=== PATIENT | female | born 1970 | race Hispanic/Latino ===

== ENCOUNTER 2019-05-15 19:28 | Emergency (ER) | payer BC ==
[2019-05-15] MEDS ORDERED: HYDROCODONE/APAP 7.5/325 MG TAB ONE (20:29)
[2019-05-15 20:43] LABS: Protime INR 1.09
[2019-05-15] MEDS ORDERED: NA CHLORIDE 0.9% 1,000 ML ONE (20:43)
[2019-05-15 20:44] LABS: Absolute Lymphocytes (CBC) 1.5 K/uL (0.7-4.9); Basophils % 0.9 % (0-1.3); Hematocrit 31.8 % (36.0-45.0); Lymphocytes % 29.3 % (15.3-44.8); MPV 6.8 fL (7.6-11.3)
[2019-05-15 21:03] LABS: ALT/SGPT 23 U/L (12-78); AST/SGOT 13 U/L (15-37); Albumin 3.3 g/dL (3.4-5.0); Alkaline Phosphatase 69 U/L (45-117); BUN Blood Urea Nitrogen 9 mg/dL (7-18); Bicarbonate 28 mmol/L (21-32); Bilirubin Direct < 0.1 mg/dL (0-0.2); Bilirubin Total 0.2 mg/dL (0.2-1.0); Glucose Level 89 mg/dL (74-106); Magnesium 2.1 mg/dL (1.8-2.4); NT PRO-BNP 115 pg/mL (<125); Potassium 3.9 mmol/L (3.5-5.1); Protein, Total 7.3 g/dL (6.4-8.2); Sodium Level 140 mmol/L (136-145); Troponin (Emerg Dept Use Only) < 0.02 ng/mL (0.0-0.045)
[2019-05-15 22:03] LABS: Urine Blood NEGATIVE (NEG); Urine Glucose NEGATIVE (NEG); Urine Protein NEGATIVE (NEG)
[2019-05-15 22:08] LABS: Anisocytosis 2+; Blood Morphology Comment NOTED (NOT SEEN); Platelet Estimate INCR; Urine White Blood Cell Casts OK
[2019-05-15 22:09] LABS: Hypochromasia 1+; Ovalocytes SLIGHT; Poikilocytosis SLIGHT; Polychromasia 1+
--- NOTE | 2019-05-15 23:41 | EDPHYS ---
Physician Documentation [facility] Name: Krala Luna Age: 48 yrs Sex: Female : 1970 Arrival Date: 05/15/2019 Time: 19:32 Bed 26 Private MD: Griffin Guaman B ED Physician Michael Willis HPI: 05/15 20:22 This 48 yrs old Female presents to ER via Ambulatory with complaints of pkl Headache, Breathing Difficulty, Cough, Dizziness. 20:22 The patient or guardian reports chest pain that is located primarily in the substernal pkl area. Onset: today, 4 hour(s) ago. The pain does not radiate. Associated signs and symptoms: Pertinent positives: cough, headache, bodyache. The chest pain is described as tightness. 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 - Coronavirus screen:: The patient has NOT traveled to [place], [place], or [place] in the past 14 days. - Social history:: Smoking status: Patient/guardian denies using tobacco. - Ebola Screening: : Patient denies travel to an Ebola-affected area in the 21 days before illness onset. ROS: 20:22 Eyes: Negative for injury, pain, redness, and discharge, ENT: Negative for injury, pkl pain, and discharge, Neck: Negative for injury, pain, and swelling. 20:22 Cardiovascular: Positive for chest pain. 20:22 Respiratory: Positive for cough, with no reported sputum. 20:22 Abdomen/GI: Negative for abdominal pain, nausea, vomiting, and diarrhea. 20:22 Back: Negative for pain at rest. 20:22 : Negative for urinary symptoms. 20:22 MS/extremity: Negative for acute changes. 20:22 Skin: Negative for rash. 20:22 Neuro: Positive for dizziness, headache. Exam: 20:22 Head/Face: Normocephalic, atraumatic. Eyes: Pupils equal round and reactive to light, pkl extra-ocular motions intact. Lids and lashes normal. Conjunctiva and sclera are non-icteric and not injected. Cornea within normal limits. Periorbital areas with no swelling, redness, or edema. ENT: Nares patent. No nasal discharge, no septal abnormalities noted. Tympanic membranes are normal and external auditory canals are clear. Oropharynx with no redness, swelling, or masses, exudates, or evidence of obstruction, uvula midline. Mucous membranes moist. Neck: Trachea midline, no thyromegaly or masses palpated, and no cervical lymphadenopathy. Supple, full range of motion without nuchal rigidity, or vertebral point tenderness. No Meningismus. Chest/axilla: Normal chest wall appearance and motion. Nontender with no deformity. No lesions are appreciated. Cardiovascular: Regular rate and rhythm with a normal S1 and S2. No gallops, murmurs, or rubs. Normal PMI, no JVD. No pulse deficits. Respiratory: Lungs have equal breath sounds bilaterally, clear to auscultation and percussion. No rales, rhonchi or wheezes noted. No increased work of breathing, no retractions or nasal flaring. Abdomen/GI: Soft, non-tender, with normal bowel sounds. No distension or tympany. No guarding or rebound. No evidence of tenderness throughout. Back: No spinal tenderness. No costovertebral tenderness. Full range of motion. Skin: Warm, dry with normal turgor. Normal color with no rashes, no lesions, and no evidence of cellulitis. MS/ Extremity: Pulses equal, no cyanosis. Neurovascular intact. Full, normal range of motion. Neuro: Awake and alert, GCS 15, oriented to person, place, time, and situation. Cranial nerves II-XII grossly intact. Motor strength 5/5 in all extremities. Sensory grossly intact. Cerebellar exam normal. Normal gait. Vital Signs: 20:06 BP 151 / 81; Pulse 86; Resp 20; Temp 98.6; Pulse Ox 100% on R/A; Weight 163.29 kg (R); aj1 Height 5 ft. 4 in. (162.56 cm) (R); Pain 6/10; 21:30 BP 121 / 73; Pulse 85; Resp 18; Pulse Ox 100% on R/A; mg2 23:13 Pulse 79; Resp 18; Pulse Ox 98% on R/A; mg2 23:51 BP 122 / 78; Pulse 70; Resp 18; Temp 98.5; Pulse Ox 100% on R/A; mg2 20:06 Body Mass Index 61.79 (163.29 kg, 162.56 cm) aj1 MDM: 20:09 Patient medically screened. pkl 23:39 Data reviewed: vital signs, nurses notes, lab test result(s), radiologic studies, CT pkl scan, plain films. 05/15 20:19 Order name: Basic Metabolic Panel; Complete Time: 21:04 pk 05/15 20:19 Order name: CBC with Diff; Complete Time: 23:42 pk 05/15 20:19 Order name: LFT's; Complete Time: 21:04 pk 05/15 20:19 Order name: Magnesium; Complete Time: 21:04 pk 05/15 20:19 Order name: NT PRO-BNP; Complete Time: 21:04 pk 05/15 20:19 Order name: PT-INR; Complete Time: 21:32 pk 05/15 20:19 Order name: Troponin (emerg Dept Use Only); Complete Time: 21:04 pk 05/15 20:19 Order name: XRAY Chest (1 view) [facility] 05/15 20:20 Order name: Flu; Complete Time: 21:04 pk 05/15 20:21 Order name: D-Dimer; Complete Time: 21:32 pk 05/15 21:34 Order name: CT Chest For PE Angio [facility] 05/15 22:00 Order name: Urine Dipstick--Ancillary (enter results) [facility] 05/15 22:00 Order name: Urine --Ancillary (enter results) [facility] 05/15 22:09 Order name: CBC Smear Scan; Complete Time: 23:42 EDMS 05/15 20:19 Order name: EKG; Complete Time: 20:21 pk 05/15 20:19 Order name: Cardiac monitoring; Complete Time: 20:31 pk 05/15 20:19 Order name: EKG - Nurse/Tech; Complete Time: 20:31 pk 05/15 20:19 Order name: IV Saline Lock; Complete Time: 20:31 pk 05/15 20:19 Order name: Labs collected and sent; Complete Time: 20:31 pk 05/15 20:19 Order name: O2 Per Protocol; Complete Time: 20:31 pkl 05/15 20:19 Order name: O2 Sat Monitoring; Complete Time: 20: pkl Administered Medications: 20:31 Drug: [place] (7.5 mg-325 mg) 1 tabs Route: PO; mg2 21:27 Follow up: Response: No adverse reaction mg2 20:48 Drug: NS 0.9% 1000 ml Route: IV; Rate: 125 ml/hr; Site: right antecubital; mg2 23:43 Follow up: Response: No adverse reaction; IV Status: Order to discontinue infusion; IV mg2 Intake: 300ml Disposition: 05/15/19 23:40 Discharged to Home. Impression: Severe headache. Chest pain. Anemia. - Condition is Stable. - Prescriptions for Tylenol- Codeine #3 300-30 mg Oral Tablet - take 1 tablet by ORAL route every 8 hours As needed; 15 tablet. - Medication Reconciliation Form, Thank You Letter, Antibiotic Education, Prescription Opioid Use form. - Follow up: Griffin Guaman MD; When: 2 - 3 days; Reason: Re-evaluation by your physician. - Problem is new. - Symptoms have improved. Signatures: Dispatcher [employer] EDMS Nayeli French RN RN aj1 Michael Willis MD MD pkl Ac Putnam RN RN mg2 Corrections: (The following items were deleted from the chart) 23:42 23:40 05/15/2019 23:40 Discharged to Home. Impression: Severe headache. Chest pain. pkl Condition is Stable. Forms are Medication Reconciliation Form, Thank You Letter, Antibiotic Education, Prescription Opioid Use. Follow up: Griffin Guaman; When: 2 - 3 days; Reason: Re-evaluation by your physician. Problem is new. Symptoms have improved. pkl 23:52 23:42 05/15/2019 23:40 Discharged to Home. Impression: Severe headache. Chest pain. mg2 Anemia. Condition is Stable. Prescriptions for Tylenol-Codeine #3 300-30 mg Oral Tablet - take 1 tablet by ORAL route every 8 hours As needed; 15 tablet. and Forms are Medication Reconciliation Form, Thank You Letter, Antibiotic Education, Prescription Opioid Use. Follow up: Griffin Guaman; When: 2 - 3 days; Reason: Re-evaluation by your physician. Problem is new. Symptoms have improved. pkl
--- NOTE | 2019-05-15 23:41 | ER ---
Nurse's Notes [facility] Name: Karla Luna Age: 48 yrs Sex: Female : 1970 Arrival Date: 05/15/2019 Time: 19:32 Bed 26 Private MD: Griffin Guaman B Diagnosis: Severe headache. Chest pain. Anemia Presentation: 05/15 20:03 Presenting complaint: Patient states: "I woke up feeling like my whole body was aching, aj1 my head was hurting, I felt dizzy, I had tightness in my chest and right now I still have a little bit but its not as tight as it was earlier, and everytime I bend down my heart beats faster and I started having this cough just a few hours ago". Transition of care: patient was not received from another setting of care. Onset of symptoms was May 15, 2019. Risk Assessment: Do you want to hurt yourself or someone else? Patient reports no desire to harm self or others. Initial Sepsis Screen: Does the patient meet any 2 criteria? HR > 90 bpm. No. Patient's initial sepsis screen is negative. Does the patient have a suspected source of infection? Yes: Productive cough/pneumonia. Care prior to arrival: None. 20:03 Method Of Arrival: Ambulatory aj1 20:03 Acuity: YESSICA 3 aj1 Triage Assessment: 20:06 Headache History: Denies prior headaches. General: Appears in no apparent distress. aj1 comfortable, Behavior is calm, cooperative, appropriate for age. Pain: Complains of pain in top of head Pain currently is 7 out of 10 on a pain scale. Pain began suddenly, Also complains of sleeplessness. Neuro: Level of Consciousness is awake, alert, obeys commands, Oriented to person, place, time, situation. Cardiovascular: Patient's skin is warm and dry. Respiratory: Airway is patent Respiratory effort is even, unlabored, Respiratory pattern is regular, symmetrical. 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 - Coronavirus screen:: The patient has NOT traveled to [place], [place], or [place] in the past 14 days. - Social history:: Smoking status: Patient/guardian denies using tobacco. - Ebola Screening: : Patient denies travel to an Ebola-affected area in the 21 days before illness onset. Screenin:50 Abuse screen: Denies threats or abuse. Denies injuries from another. Nutritional mg2 screening: No deficits noted. Tuberculosis screening: No symptoms or risk factors identified. Fall Risk IV access (20 points). Assessment: 20:49 General: Appears in no apparent distress. comfortable, Behavior is calm, cooperative. mg2 Pain: Complains of pain in top of head. Neuro: Level of Consciousness is awake, alert, obeys commands, Oriented to person, place, time. Cardiovascular: Capillary refill < 3 seconds Patient's skin is warm and dry. Respiratory: Airway is patent Respiratory effort is even, unlabored, Respiratory pattern is regular, symmetrical. Respiratory: Reports shortness of breath cough that is. GI: No signs and/or symptoms were reported involving the gastrointestinal system. : No signs and/or symptoms were reported regarding the genitourinary system. EENT: No signs and/or symptoms were reported regarding the EENT system. Derm: Skin is intact, is healthy with good turgor, Skin is pink, warm \\T\\ dry. normal. Musculoskeletal: Circulation, motion, and sensation intact. Capillary refill < 3 seconds. 22:04 Reassessment: patient sent to ct scan. mg2 23:13 Reassessment: Patient appears in no apparent distress at this time. Patient and/or mg2 family updated on plan of care and expected duration. Pain level reassessed. Patient is alert, oriented x 3, equal unlabored respirations, skin warm/dry/pink. Patient states feeling better. 23:51 Reassessment: Patient appears in no apparent distress at this time. Patient denies pain mg2 at this time. Patient states feeling better. Vital Signs: 20:06 BP 151 / 81; Pulse 86; Resp 20; Temp 98.6; Pulse Ox 100% on R/A; Weight 163.29 kg (R); aj1 Height 5 ft. 4 in. (162.56 cm) (R); Pain 6/10; 21:30 BP 121 / 73; Pulse 85; Resp 18; Pulse Ox 100% on R/A; mg2 23:13 Pulse 79; Resp 18; Pulse Ox 98% on R/A; mg2 23:51 BP 122 / 78; Pulse 70; Resp 18; Temp 98.5; Pulse Ox 100% on R/A; mg2 20:06 Body Mass Index 61.79 (163.29 kg, 162.56 cm) aj1 ED Course: 19:32 Patient arrived in ED. es 19:33 Griffin Guaman MD is Private Physician. es 20:06 Triage completed. aj1 20:06 Arm band placed on Patient placed in an exam room. aj1 20:09 Michael Willis MD is Attending Physician. pkl 20:19 Ac Putnam, MORTEZA is Primary Nurse. mg2 20:31 No provider procedures requiring assistance completed. Inserted saline lock: 22 gauge mg2 in right antecubital area, using aseptic technique. Blood collected. 20:49 XRAY Chest (1 view) In Process Unspecified. EDMS 20:49 X-ray completed. Portable x-ray completed in exam room. Patient tolerated procedure mh1 well. 20:50 Patient has correct armband on for positive identification. mg2 21:38 Radiology exam delayed due to test not completed at this time. mw3 22:29 CT Chest For PE Angio In Process Unspecified. EDMS 23:39 Griffin Guaman MD is Referral Physician. pkl 23:51 IV discontinued, intact, bleeding controlled, No redness/swelling at site. Pressure mg2 dressing applied. Administered Medications: 20:31 Drug: [place] (7.5 mg-325 mg) 1 tabs Route: PO; mg2 21:27 Follow up: Response: No adverse reaction mg2 20:48 Drug: NS 0.9% 1000 ml Route: IV; Rate: 125 ml/hr; Site: right antecubital; mg2 23:43 Follow up: Response: No adverse reaction; IV Status: Order to discontinue infusion; IV mg2 Intake: 300ml Intake: 23:43 IV: 300ml; Total: 300ml. mg2 Outcome: 23:40 Discharge ordered by . pkl 23:52 Discharged to home ambulatory, with family. mg2 23:52 Condition: good 23:52 Discharge instructions given to patient, Instructed on discharge instructions, follow up and referral plans. medication usage, Demonstrated understanding of instructions, follow-up care, medications, Prescriptions given X 2. 23:52 Patient left the ED. mg2 Signatures: Dispatcher [employer] Nayeli Rodríguez RN RN aj1 Michael Willis MD MD pkl Salyer, Edna es Harvey, Martha 1 Ac Putnam RN RN mg2 Marie Espinosa 3
[2019-05-16 01:27] VITALS: BP 122/78; TEMP 98.5; O2SAT 100
--- NOTE | 2019-05-16 08:07 | RAD REPORT ---
EXAM DESCRIPTION: RAD - Chest Single View - 05/15/2019 8:48 pm CLINICAL HISTORY: CHEST PAIN COMPARISON: CHEST SINGLE VIEW dated 11/15/2013; Chest For Pe Angio dated 05/15/2019 TECHNIQUE: AP portable chest image was obtained 05/15/2019 8:48 pm . FINDINGS: No focal mass or consolidation. Heart size and vasculature are fractionally increased from the comparison. No measurable pleural effusion and no pneumothorax. No acute bony abnormality seen. No acute aortic findings suspected. IMPRESSION: No peripheral mass or consolidation. Heart size and vasculature appear slightly more pro nounced than comparison. Interval change is minimal but patient can be evaluated for possible early failure or volume overload .
--- NOTE | 2019-05-16 08:25 | EKG ---
Test Date: 2019-05-15 Test Time: 20:36:01 Associate Professor Of Economics: MEASUREMENT RESULTS: Intervals: Rate: 81 [place]: 146 QRSD: 84 QT: 390 QTc: 453 Somis: P: 28 [place]: 146 QRS: 15 T: 39 INTERPRETIVE STATEMENTS: Normal sinus rhythm Cannot rule out Anterior infarct, age undetermined Abnormal ECG Compared to ECG 11/15/2013 13:39:57 questionable Myocardial infarct finding now present Electronically Signed On 05-16-19 08:24:46 ELECTRICAL PROSPECTING OBSERVER by Ace Kurtz
--- NOTE | 2019-05-16 10:47 | RAD REPORT ---
EXAM DESCRIPTION: CT - Chest For Pe Angio - 05/15/2019 10:29 pm CLINICAL HISTORY: Shortness of breath. COMPARISON: None. TECHNIQUE: CT angiogram of the chest with IV contrast. 3-D MIP images were obtained in coronal and s agittal reconstructions. This exam was performed according to our departmental dose-optimization prog hermes, which includes automated exposure control, adjustment of the mA and/or kV according to patient s ize and/or use of iterative reconstruction technique. FINDINGS: No filling defects are seen in the pulmonary trunk or the left and right main pulmonary ar elsa. There is limited evaluation of the segmental branches due to motion artifact. The thyroid gland is normal. No mediastinal or hilar adenopathy. The heart size is mildly enlarged wi thout pericardial effusion. The thoracic aorta is normal caliber. No consolidation, pleural effusion, or pneumothorax is identified. The visualized upper abdomen demonstrates no acute findings. No acute osseous findings are seen. IMPRESSION: No central pulmonary embolism. Electronically signed by: Zac Walsh MD 05/15/2019 10:41 PM SOLE ROUGHER Due to temporary technical issues with the PACS/Fluency reporting system, reports are being signed by the in house radiologist as a courtesy to ensure prompt reporting. The interpreting radiologist is f ully responsible for the content of the report.
== END 2019-05-15 23:52 | disposition home or self-care (01) ==
LOC: ER 19:28
DX: D64.9 Anemia, unspecified (principal); R51 Headache
CPT/HCPCS: 96361; 93005; 85025; 80048; 36415; 83735; 81025; 85610; 85379; 80076; 81003; 84484; 83880; 87804 ×2; 71275; 71045; 96360; 99284; Q9967; J7030

== ENCOUNTER 2021-10-04 14:52 | Emergency (ER) | payer BC ==
--- NOTE | 2021-10-04 17:04 | RAD REPORT ---
EXAM DESCRIPTION: RAD - Chest Pa And Lat (2 Views) - 10/04/2021 4:59 pm CLINICAL HISTORY: CHEST PAIN COMPARISON: None TECHNIQUE: Frontal and lateral views of the chest were obtained. FINDINGS: Lateral view is degraded by motion. The lungs are clear. Interstitial pattern is similar to comparison. No hilar mass or lymphadenopathy seen. Heart size is normal and central vasculature is within normal limits. No pleural effusion or pneumothorax seen. No acute bony finding noted. No aortic abnormality. IMPRESSION: No acute cardiopulmonary process. No significant change from comparison study.
[2021-10-04 17:29] LABS: Urine Blood Negative (Negative); Urine Glucose Negative (Negative); Urine Protein Negative (Negative); Urine pH 5.5 (5.0-7.0)
--- NOTE | 2021-10-04 17:35 | RAD REPORT ---
EXAM DESCRIPTION: US - Abdomen Exam Limited - 10/04/2021 5:09 pm CLINICAL HISTORY: ABD PAIN COMPARISON: Abdomen Pelvis W Contrast dated 10/23/2016 FINDINGS: No gallstones, sludge or other abnormalities within the gallbladder lumen. There is no wal l thickening or pericholecystic fluid. No common duct stone or biliary tree dilatation identified. Partially imaged liver shows a coarsened, increased hepatic echogenicity that is most likely fatty in filtration. IMPRESSION: Normal gallbladder and biliary tree ultrasound. Probable fatty infiltration of a partially imaged liver.
[2021-10-04] MEDS ORDERED: KETOROLAC 30 MG/ML INJ ONE (18:18)
[2021-10-04] MEDS ORDERED: HYDROCODONE/APAP 10/325 TAB ONE (18:34)
--- NOTE | 2021-10-04 18:44 | EDPHYS ---
Physician Documentation [facility] Name: Karla Luna Age: 50 yrs Sex: Female : 1970 Arrival Date: 10/04/2021 Time: 15:10 Bed 16 Private MD: ED Physician Geoff Gutiérrez HPI: 10/05 00:32 This 50 yrs old Female presents to ER via Wheelchair with complaints of Flank kb Pain. 00:34 The patient presents with pain that is acute. The symptoms are located in the right kb flank. Onset: The symptoms/episode began/occurred 1 month(s) ago, and became worse today. The pain does not radiate. Associated signs and symptoms: The patient has no apparent associated signs or symptoms. The problem was sustained from unknown cause. Modifying factors: The patient symptoms are alleviated by nothing, the patient symptoms are aggravated by any movement. Severity of symptoms: At their worst the symptoms were moderate, in the emergency department the symptoms are unchanged. The patient has not experienced similar symptoms in the past. The patient has been recently seen by a physician:. Pt reports right flank pain that started a month or more ago, but got worse today. States the pain is worse with deep breath and movement, pain resolves if she is still. States she has seen her pcp for this and was given muscle relaxers, but they provide no relief. States she is concerned it is her gallbladder because a family member had similar pain. States the pain causes nausea. . Historical: - Allergies: 10/04 16:07 No Known Allergies; jl7 - Home Meds: 16:07 None [Active]; jl7 - PMHx: 16:07 None; jl7 - PSHx: 16:07 None; jl7 - Immunization history:: Adult Immunizations up to date, Client reports receiving the 2nd dose of the Covid vaccine. - Social history:: Smoking status: Patient denies any tobacco usage or history of. Patient/guardian denies using alcohol. ROS: 10/05 00:34 Constitutional: Negative for fever, chills, and weight loss. kb Abdomen/GI: Positive for nausea. Back: Positive for pain with movement. All other systems are negative. Exam: 00:34 Constitutional: This is a well developed, well nourished patient who is awake, alert, kb and in no acute distress. Head/Face: Normocephalic, atraumatic. ENT: Moist Mucous membranes Cardiovascular: Regular rate and rhythm with a normal S1 and S2. No gallops, murmurs, or rubs. No pulse deficits. Respiratory: Respirations even and unlabored. No increased work of breathing. Talking in full sentences Abdomen/GI: Soft, non-tender. No distention Skin: Warm, dry with normal turgor. Normal color. MS/ Extremity: Pulses equal, no cyanosis. Neurovascular intact. Full, normal range of motion. Neuro: Awake and alert, GCS 15, oriented to person, place, time, and situation. Moves all extremities. Normal gait. Psych: Awake, alert, with orientation to person, place and time. Behavior, mood, and affect are within normal limits. 00:34 Back: pain, that is moderate, of the right flank, ROM is painful, normal spinal alignment noted, CVA tenderness, that is mild. 00:38 Neuro: Exam negative for acute changes. kb Vital Signs: 10/04 16:05 BP 149 / 93; Pulse 62; Resp 18; Temp 97.6; Pulse Ox 100% ; Weight 154.22 kg; Height 5 jl7 ft. 4 in. (162.56 cm); 18:40 BP 139 / 86; Pulse 65; Resp 18; Pulse Ox 100% on R/A; ld1 16:05 Body Mass Index 58.36 (154.22 kg, 162.56 cm) jl7 MDM: 16:12 Patient medically screened. kb 10/05 00:34 Data reviewed: vital signs, nurses notes. Data interpreted: Pulse oximetry: on room air kb is 100 %. Interpretation: normal. Counseling: I had a detailed discussion with the patient and/or guardian regarding: the historical points, exam findings, and any diagnostic results supporting the discharge/admit diagnosis, lab results, radiology results, the need for outpatient follow up, a family practitioner, to return to the emergency department if symptoms worsen or persist or if there are any questions or concerns that arise at home. 10/04 17:30 Order name: Urine Dipstick-Ancillary; Complete Time: 17:30 EDMS 10/04 17:33 Order name: Urine --Ancillary (enter results); Complete Time: 17:50 eb 10/04 16:04 Order name: Chest Pa And Lat (2 Views) XRAY; Complete Time: 17:18 jl7 10/04 16:04 Order name: US Abdomen Limited; Complete Time: 17:42 10/04 16:04 Order name: Urine Dipstick-Ancillary (obtain specimen); Complete Time: 17:34 Administered Medications: 10/04 18:20 Drug: [place] (HYDROcodone-acetaminophen) 10 mg-325 mg 1 tabs Route: PO; ld1 18:21 Drug: Ketorolac 60 mg Route: IM; Site: left deltoid; ld1 Disposition Summary: 10/04/21 18:43 Discharge Ordered Location: Home kb Condition: Stable kb Diagnosis - Strain of muscle and tendon of back wall of thorax kb Followup: kb - With: Private Physician - When: 2 - 3 days - Reason: Recheck today's complaints, Continuance of care, Re-evaluation by your physician Followup: kb - With: Emergency Department - When: As needed - Reason: Worsening of condition Discharge Instructions: - Discharge Summary Sheet kb - Muscle Strain, [id number] kb Forms: - Medication Reconciliation Form kb - Work release form kb - Thank You Letter kb - Antibiotic Education kb - Prescription Opioid Use kb Prescriptions: - Cyclobenzaprine 10 mg Oral Tablet - take 1 tablet by ORAL route every 8 hours As needed; 15 tablet; Refills: 0, kb Product Selection Permitted - Diclofenac Sodium 75 mg Oral tablet,delayed release (DR/EC) - take 1 tablet by ORAL route 2 times per day As needed; 30 tablet; Refills: 0, kb Product Selection Permitted Addendum: 10/07/2021 10:26 Co-signature as Attending Physician, Geoff Gutiérrez MD. r n Signatures: Dispatcher [employer] Arianne Driscoll, CYLINDER BLOCK MECHANIC-C CYLINDER BLOCK MECHANIC-Geoff Singletary MD MD rn Virgil Umana RN RN jl7 Selma Leija RN RN ld1
--- NOTE | 2021-10-04 18:44 | ER ---
Nurse's Notes [facility] Name: Karla Luna Age: 50 yrs Sex: Female : 1970 Arrival Date: 10/04/2021 Time: 15:10 Bed 16 Private MD: Diagnosis: Strain of muscle and tendon of back wall of thorax Presentation: 10/04 16:05 Chief complaint: Patient states: Right flank pain x 1 month, worse today with coughing. jl7 Coronavirus screen: At this time, the client does not indicate any symptoms associated with coronavirus-19. Ebola Screen: No symptoms or risks identified at this time. Initial Sepsis Screen: Does the patient meet any 2 criteria? No. Patient's initial sepsis screen is negative. Does the patient have a suspected source of infection? No. Patient's initial sepsis screen is negative. Risk Assessment: Do you want to hurt yourself or someone else? Patient reports no desire to harm self or others. Onset of symptoms was September 03, 2021. 16:05 Method Of Arrival: Wheelchair jl 16:05 Acuity: YESSICA 3 jl7 Triage Assessment: 16:07 General: Appears in no apparent distress. uncomfortable, Behavior is calm, cooperative, jl7 appropriate for age. Pain: Complains of pain in right flank. Historical: - Allergies: 16:07 No Known Allergies; jl7 - Home Meds: 16:07 None [Active]; jl7 - PMHx: 16:07 None; jl7 - PSHx: 16:07 None; jl7 - Immunization history:: Adult Immunizations up to date, Client reports receiving the 2nd dose of the Covid vaccine. - Social history:: Smoking status: Patient denies any tobacco usage or history of. Patient/guardian denies using alcohol. Screenin:21 Abuse screen: Denies threats or abuse. Denies injuries from another. Nutritional ld1 screening: No deficits noted. Tuberculosis screening: No symptoms or risk factors identified. Fall Risk None identified. Assessment: 16:08 Reassessment: SHELDON Acuña in triage assessing pt. jl7 18:21 Reassessment: Patient appears in no apparent distress at this time. Patient and/or ld1 family updated on plan of care and expected duration. Pain level reassessed. Patient is alert, oriented x 3, equal unlabored respirations, skin warm/dry/pink. Vital Signs: 16:05 BP 149 / 93; Pulse 62; Resp 18; Temp 97.6; Pulse Ox 100% ; Weight 154.22 kg; Height 5 jl7 ft. 4 in. (162.56 cm); 18:40 BP 139 / 86; Pulse 65; Resp 18; Pulse Ox 100% on R/A; ld1 16:05 Body Mass Index 58.36 (154.22 kg, 162.56 cm) jl7 ED Course: 15:10 Patient arrived in ED. am2 15:42 Arianne Borges FNP-C is PHCP. kb 15:42 Geoff Gutiérrez MD is Attending Physician. kb 16:07 Triage completed. jl7 16:07 Arm band placed on right wrist. Patient placed in waiting room, Patient notified of jl7 wait time. 17:00 Chest Pa And Lat (2 Views) XRAY In Process Unspecified. EDMS 17:10 US Abdomen Limited In Process Unspecified. EDMS 18:20 Selma Leija, MORTEZA is Primary Nurse. ld1 18:21 Patient has correct armband on for positive identification. Placed in gown. Bed in low ld1 position. Call light in reach. Side rails up X2. quality assurance monitor final on. Pulse ox on. NIBP on. Door closed. Noise minimized. Warm blanket given. 18:21 No provider procedures requiring assistance completed. Patient did not have IV access ld1 during this emergency room visit. Administered Medications: 18:20 Drug: Turlock (HYDROcodone-acetaminophen) 10 mg-325 mg 1 tabs Route: PO; ld1 18:21 Drug: Ketorolac 60 mg Route: IM; Site: left deltoid; ld1 Medication: 18:21 VIS not applicable for this client. ld1 Outcome: 18:43 Discharge ordered by . kb 19:04 Discharged to home ambulatory, with family. ld1 19:04 Condition: stable 19:04 Discharge instructions given to patient, family, Instructed on discharge instructions, follow up and referral plans. medication usage, Demonstrated understanding of instructions, follow-up care, medications, Prescriptions given X 2. 19:04 Patient left the ED. ld1 Signatures: Dispatcher [employer] EDMS Arianne Borges FNP-C FNP-Virgil Alcantara RN RN jl7 Rayna Garcia am2 Selma Leija, RN RN ld1
[2021-10-04 19:23] VITALS: TEMP 97.6; O2SAT 100
[2021-10-04 19:25] VITALS: BP 139/86
== END 2021-10-04 19:04 | disposition home or self-care (01) ==
LOC: ER 14:52
DX: S29.012A Strain of muscle and tendon of back wall of thorax, initial encounter (principal)
CPT/HCPCS: 71046; 76705; 81003; 81025; 96372; 99284

== ENCOUNTER 2021-10-17 07:08 | Emergency (ER) | payer BC ==
[2021-10-17] MEDS ORDERED: HYDROCODONE/APAP 5/325 MG TAB ONE (07:54)
--- NOTE | 2021-10-17 08:51 | RAD REPORT ---
EXAM DESCRIPTION: RAD - Knee Right 3 View - 10/17/2021 8:17 am CLINICAL HISTORY: PAIN COMPARISON: No comparisons FINDINGS: No fracture, dislocation or periosteal reaction.No joint effusion seen. No joint space brooke rowing. No foreign body or other soft tissue abnormality. IMPRESSION: Negative right knee. Clinical concerns for internal derangement or occult bony injury could be further assessed with MR im aging.
--- NOTE | 2021-10-17 09:15 | ER ---
Nurse's Notes [facility] Name: Karla Luna Age: 50 yrs Sex: Female : 1970 Arrival Date: 10/17/2021 Time: 07:10 Bed 7 Private MD: Diagnosis: Pain in knee Presentation: 10/17 07:32 Chief complaint: Patient states: pain in back of knee, loud pop in right leg, pain shot kr3 up leg, fell. Coronavirus screen: Vaccine status: Patient reports receiving the 2nd dose of the covid vaccine. Client denies travel out of the [place] in the last 14 days. At this time, the client does not indicate any symptoms associated with coronavirus-19. Ebola Screen: Patient denies travel to an Ebola-affected area in the 21 days before illness onset. Initial Sepsis Screen: Does the patient meet any 2 criteria? No. Patient's initial sepsis screen is negative. Does the patient have a suspected source of infection? No. Patient's initial sepsis screen is negative. Risk Assessment: Do you want to hurt yourself or someone else? Patient reports no desire to harm self or others. Onset of symptoms was October 17, 2021. 07:32 Method Of Arrival: Wheelchair kr3 07:32 Acuity: YESSICA 4 kr3 Triage Assessment: 07:40 General: Appears uncomfortable, obese. General: Behavior is calm, cooperative, kr3 appropriate for age. Pain: Complains of pain in posterior of right knee Pain currently is 7 out of 10 on a pain scale. Quality of pain is described as aching, Pain began 4 hours ago. 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 - Social history:: Smoking status: Patient/guardian denies using tobacco, the patient reports quitting approximately 18 years ago. Screenin:37 Abuse screen: Denies threats or abuse. Nutritional screening: No deficits noted. kr3 Tuberculosis screening: No symptoms or risk factors identified. Fall Risk Gait- Impaired (20 pts.). 09:38 Fall Risk Gait- Impaired (20 pts.). Total Santoyo Fall Scale indicates No Risk (0-24 pts).kr3 Assessment: 08:51 Reassessment: No changes from previously documented assessment. Patient and/or family kr3 updated on plan of care and expected duration. Pain level reassessed. Musculoskeletal: Circulation, motion, and sensation intact. Capillary refill < 3 seconds, in right. 09:19 Reassessment: No changes from previously documented assessment. Patient and/or family kr3 updated on plan of care and expected duration. Pain level reassessed. Vital Signs: 07:32 BP 123 / 74; Pulse 89; Resp 20; Temp 97.3; Pulse Ox 96% ; Weight 156.49 kg; Height 5 kr3 ft. 3 in. (160.02 cm); Pain 7/10; 08:49 BP 133 / 84; Pulse 63; Resp 18; Pulse Ox 93% on R/A; kr3 09:25 BP 144 / 95; Pulse 65; Resp 18; Pulse Ox 97% on R/A; kr3 07:32 Body Mass Index 61.11 (156.49 kg, 160.02 cm) kr3 ED Course: 07:10 Patient arrived in ED. ld1 07:15 Geoff Gutiérrez MD is Attending Physician. rn 07:17 Clay Cruz DO is Attending Physician. ms3 07:23 Arm band placed on Patient placed in an exam room, on a stretcher. ll1 07:32 Josefina Avitia, MORTEZA is Primary Nurse. kr3 07:37 Triage completed. kr3 08:19 Knee Right 3 View XRAY In Process Unspecified. EDMS 08:50 Crutch training done. Knee immobilizer applied on right knee. kr3 09:14 Jakob Ulloa MD is Referral Physician. ms3 09:39 No provider procedures requiring assistance completed. kr3 09:40 Bed in low position. Call light in reach. Side rails up X 1. kr3 09:40 Patient did not have IV access during this emergency room visit. kr3 Administered Medications: 07:48 Drug: HYDROcodone-acetaminophen 5 mg-325 mg 1 tabs Route: PO; kr3 09:20 Follow up: Response: No adverse reaction kr3 Medication: 09:41 VIS not applicable for this client. kr3 Outcome: 09:14 Discharge ordered by . ms3 09:39 Discharged to home via wheelchair, with crutches. kr3 09:39 Condition: stable 09:39 Discharge instructions given to patient, Instructed on discharge instructions, follow up and referral plans. medication usage, Demonstrated understanding of instructions, follow-up care, medications, crutch walking, Prescriptions given X 1. 09:41 Patient left the ED. kr3 Signatures: Dispatcher [employer] EDMS Geoff Gutiérrez MD MD rn Lewis, Lynsay RN RN ll1 Clay Cruz DO DO ms3 Selma Leija RN RN ld1 Josefina Avitia RN RN kr3 Corrections: (The following items were deleted from the chart) 09:38 09:37 Tuberculosis screening: No symptoms or risk factors identified. kr3 kr3
--- NOTE | 2021-10-17 09:15 | EDPHYS ---
Physician Documentation [facility] [place] [place] Name: Karla Luna Age: 50 yrs Sex: Female : 1970 Arrival Date: 10/17/2021 Time: 07:10 Bed 7 Private MD: ED Physician Clay Cruz HPI: 10/17 07:28 This 50 yrs old Female presents to ER via Unassigned with complaints of Leg ms3 Pain. 07:28 The patient presents with pain, that is acute. The complaints affect the posterior ms3 aspect of right knee. Context: The problem was sustained at home, resulted from Was walking and heard a pop causing her to fall and pain began in the back of her knee, the patient can partially bear weight, the patient is able to ambulate, with moderate difficulty. Onset: The symptoms/episode began/occurred acutely, 5 hour(s) ago. Modifying factors: The symptoms are alleviated by rest. the symptoms are aggravated by nothing. Associated signs and symptoms: The patient has no apparent associated signs or symptoms. Treatment prior to arrival includes: greyson wrap. 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 - Social history:: Smoking status: Patient/guardian denies using tobacco, the patient reports quitting approximately 18 years ago. ROS: 07:28 Constitutional: Negative for fever, and chills. Neck: Negative for injury, pain, and ms3 swelling, Cardiovascular: Negative for chest pain, and palpitations. Respiratory: Negative for shortness of breath, cough, wheezing, and pleuritic chest pain, Abdomen/GI: Negative for abdominal pain, nausea, vomiting, diarrhea, and constipation, Skin: Negative for injury, rash, and discoloration, Neuro: Negative for headache, weakness, numbness, tingling. Hematologic/Lymphatic: Negative for swollen nodes, abnormal bleeding, and unusual bruising. 07:28 MS/extremity: Positive for pain. 07:28 All other systems are negative. Exam: 07:28 Constitutional: This is a well developed, well nourished patient who is awake, alert, ms3 and in no acute distress. Head/Face: Normocephalic, atraumatic. Neck: Trachea midline, no cervical lymphadenopathy. Supple, full range of motion without nuchal rigidity, or vertebral point tenderness. No Meningismus. Chest/axilla: Normal chest wall appearance and motion. Nontender with no deformity. Cardiovascular: Regular rate and rhythm with a normal S1 and S2. No gallops, murmurs, or rubs. Normal PMI, no JVD. No pulse deficits. Respiratory: Lungs have equal breath sounds bilaterally, clear to auscultation and percussion. No rales, rhonchi or wheezes noted. No increased work of breathing, no retractions or nasal flaring. Abdomen/GI: Soft, non-tender, with normal bowel sounds. No distension or tympany. No guarding or rebound. No evidence of tenderness throughout. Skin: Warm, dry with normal turgor. Normal color with no rashes, no lesions, and no evidence of cellulitis. MS/ Extremity: Pulses equal, no cyanosis. Neurovascular intact. Full, normal range of motion. Psych: Awake, alert, with orientation to person, place and time. Behavior, mood, and affect are within normal limits. 07:28 Musculoskeletal/extremity: Extremities: noted in the posterior aspect of right knee: pain, ROM: limited passive range of motion due to pain, in the posterior aspect of right knee, Circulation is intact in all extremities. Sensation intact. Compartment Syndrome exam of affected extremity: is normal. no numbness, no tingling, no sensation deficit, no palor, no weak pulses. Vital Signs: 07:32 BP 123 / 74; Pulse 89; Resp 20; Temp 97.3; Pulse Ox 96% ; Weight 156.49 kg; Height 5 kr3 ft. 3 in. (160.02 cm); Pain 7/10; 08:49 BP 133 / 84; Pulse 63; Resp 18; Pulse Ox 93% on R/A; kr3 09:25 BP 144 / 95; Pulse 65; Resp 18; Pulse Ox 97% on R/A; kr3 07:32 Body Mass Index 61.11 (156.49 kg, 160.02 cm) kr3 MDM: 07:28 Differential diagnosis: closed fracture, contusion, Meniscus tear. ms3 07:32 Patient medically screened. ms3 19:30 Data reviewed: vital signs, nurses notes, radiologic studies, and as a result, I will ms3 discharge patient. Counseling: I had a detailed discussion with the patient and/or guardian regarding: the historical points, exam findings, and any diagnostic results supporting the discharge/admit diagnosis, radiology results, the need for outpatient follow up, to return to the emergency department if symptoms worsen or persist or if there are any questions or concerns that arise at home. ED course: Discussed X-ray, and PE findings with patient. Patient to follow up with PMD in 2-3 days. Patient understands/ agrees with plan. All questions answered. Return precautions discussed to include worsening symptoms, or any other concerns. On re-evaluation patient is improved, A/O x4, nad, non-toxic, ambulatory in ED with crutches, speaking full sentences.. 10/17 07:28 Order name: Knee Right 3 View XRAY; Complete Time: 09:14 ms3 10/17 07:28 Order name: Knee Immobilizer; Complete Time: 08:49 ms3 10/17 07:28 Order name: Crutches; Complete Time: 08:49 ms3 10/17 07:28 Order name: Crutch Training; Complete Time: 08:49 ms3 Administered Medications: 07:48 Drug: HYDROcodone-acetaminophen 5 mg-325 mg 1 tabs Route: PO; kr3 09:20 Follow up: Response: No adverse reaction kr3 Disposition Summary: 10/17/21 09:14 Discharge Ordered Location: Home ms3 Condition: Stable ms3 Diagnosis - Pain in knee ms3 Followup: ms3 - With: Jakob Ulloa MD - When: 2 - 3 days - Reason: Recheck today's complaints Discharge Instructions: - Discharge Summary Sheet ms3 - Acute Knee Pain, Adult ms3 Forms: - Medication Reconciliation Form ms3 - Thank You Letter ms3 - Antibiotic Education ms3 - Prescription Opioid Use ms3 Prescriptions: - Ibuprofen 600 mg Oral Tablet - take 1 tablet by ORAL route every 6 hours As needed take with food; 30 tablet; ms3 Refills: 0, Product Selection Permitted Signatures: Dispatcher [facility] ED[facility] Clay Cruz DO DO ms3 Josefina Avitia RN RN kr3
[2021-10-17 09:50] VITALS: BP 144/95; O2SAT 97
[2021-10-17 09:56] VITALS: TEMP 97.3
== END 2021-10-17 09:41 | disposition home or self-care (01) ==
LOC: ER 07:08
DX: M25.561 Pain in right knee (principal)

== ENCOUNTER → 2023-04-11 | Emergency (ER) | payer BC ==
--- OUTSIDE RECORDS SUMMARY | 2023-04-11 17:45 | XMS REPORT | Continuity of Care Document ---
Author Name Unknown Address [address] [place] [address] thconnect Address [address] [facility] [address] [place] [address] Care Team Providers Care Trash Man Name Role Phone Santy Guaman Attending Clinician Unavailable [email or web address] Attending Clinician Unavaila ble [email or web address] Admitting Clinician Unavaila ble Encounters Start Date/Time End Date/Time Encounter Type Admission Type Attending Clinicians Care Facility Care Department Encounter ID Source 2021-11-13 08:38:03 Outpatient Santy Guaman [facility] [id number] [facility] 2023-02-08 00:00:00 2023-02-08 00:00:00 Outpatient [email or web address] [facility] [id number] [facility]
--- NOTE | 2023-04-11 19:58 | RAD REPORT ---
EXAM DESCRIPTION: Sarai Ya And Darion (2 Views)04/11/2023 7:40 pm CLINICAL HISTORY: Cough COMPARISON: 2021 FINDINGS: The lungs appear clear of acute infiltrate. The heart is normal size IMPRESSION: No acute abnormalities displayed
--- NOTE | 2023-04-11 20:07 | EDPHYS ---
Physician Documentation [facility] Name: Karla Luna Age: 52 yrs Sex: Female : 1970 Arrival Date: 04/11/2023 Time: 17:41 Bed Treatment Private MD: ED Physician Geoff Gutiérrez HPI: 04/11 20:02 This 52 yrs old Female presents to ER via Ambulatory with complaints of Flu kb Symptoms. 20:02 Patient is a 52-year-old female who presents for cough, congestion, sore throat, ear kb pain, fever, chills and body aches that started 2 days ago. Denies nausea, vomiting, diarrhea, abdominal pain. Historical: - Allergies: 19:03 No Known Drug Allergies; hb - PSHx: 19:03 Ligation of fallopian tube; hb - Immunization history:: Adult Immunizations up to date. - Social history:: Smoking status: Patient denies any tobacco usage or history of. ROS: 20:01 Cardiovascular: Negative for chest pain, palpitations, and edema, kb 20:01 Constitutional: Positive for body aches, chills, fatigue, fever, malaise, 20:01 ENT: Positive for ear pain, sinus congestion, sore throat, 20:01 Respiratory: Positive for cough, 20:01 All other systems are negative, Exam: 20:01 Constitutional: This is a well developed, well nourished patient who is awake, alert, kb and in no acute distress. Head/Face: Normocephalic, atraumatic. ENT: Moist Mucous membranes Cardiovascular: Regular rate Respiratory: Respirations even and unlabored. No increased work of breathing. Talking in full sentences Abdomen/GI: Soft, non-tender. No distention Skin: Warm, dry with normal turgor. Normal color. MS/ Extremity: Pulses equal, no cyanosis. Neurovascular intact. Full, normal range of motion. Neuro: Awake and alert, GCS 15, oriented to person, place, time, and situation. Moves all extremities. Normal gait. Vital Signs: 19:01 BP 164 / 92; Pulse 94; Resp 18; Temp 97.8; Pulse Ox 97% ; Weight 142.88 kg; Height 5 hb ft. 3 in. ; 19:58 BP 129 / 81; Pulse 93; Resp 16; Pulse Ox 98% on R/A; Pain 6/10; pf1 19:01 Body Mass Index 55.80 (142.88 kg, 160.02 cm) hb 19:58 Pain Scale: Adult pf1 MDM: 17:52 Patient medically screened. kb 20:02 Differential diagnosis: Flu, COVID, strep, URI, pneumonia. Data reviewed: vital signs, kb nurses notes. 20:06 Counseling: I had a detailed discussion with the patient and/or guardian regarding the kb historical points, exam findings, and any diagnostic results supporting the discharge/admit diagnosis, lab results, radiology results, the need for outpatient follow up, a family practitioner, to return to the emergency department if symptoms worsen or persist or if there are any questions or concerns that arise at home. 04/11 18:06 Order name: Flu; Complete Time: 20:06 kb 04/11 18:06 Order name: Strep; Complete Time: 19:55 kb 04/11 18:06 Order name: Chest Pa And Lat (2 Views) XRAY; Complete Time: 20:01 kb Administered Medications: No medications were administered Disposition: 04/12 06:59 Co-signature as Attending Physician, Geoff Gutiérrez MD I reviewed the patient's care rn provided by the Advanced Practice Provider and agree with the diagnosis and treatment plan. Disposition Summary: 04/11/23 20:07 Discharge Ordered Notes: Location: Home kb Condition: Stable kb Diagnosis - Streptococcal pharyngitis kb Followup: kb - With: Emergency Department - When: As needed - Reason: Worsening of condition Followup: kb - With: Private Physician - When: 2 - 3 days - Reason: Recheck today's complaints, Continuance of care, Re-evaluation by your physician Discharge Instructions: - Discharge Summary Sheet kb - Strep Throat, Adult, [id number] kb Forms: - Medication Reconciliation Form kb - Thank You Letter kb - Antibiotic Education kb - Prescription Opioid Use kb - Patient Portal Instructions kb - Leadership Thank You Letter kb - Work release form pf1 Prescriptions: - Augmentin 875-125 mg Oral Tablet - take 1 tablet ORAL route every 12 hours for 10 days; 20 tablet; Refills: 0, kb Product Selection Permitted Signatures: Dispatcher [employer] Arianne Driscoll, HUMPHREY MASSEY-Geoff Singletary MD MD rn Baxter, Heather, RN RN Corrections: (The following items were deleted from the chart) 04/11 20:07 20:07 Streptococcal tonsillitis kb kb
--- NOTE | 2023-04-11 20:07 | ER ---
Nurse's Notes [facility] Name: Karla Luna Age: 52 yrs Sex: Female : 1970 Arrival Date: 04/11/2023 Time: 17:41 Bed Treatment Private MD: Diagnosis: Streptococcal pharyngitis Presentation: 04/11 19:01 Chief complaint: Patient states: 2 DAYS FLU-LIKE. Coronavirus screen: At this time, the hb client does not indicate any symptoms associated with coronavirus-19. Ebola Screen: No symptoms or risks identified at this time. Initial Sepsis Screen: Does the patient meet any 2 criteria? No. Patient's initial sepsis screen is negative. Does the patient have a suspected source of infection? No. Patient's initial sepsis screen is negative. Risk Assessment: Do you want to hurt yourself or someone else? Patient reports no desire to harm self or others. Onset of symptoms is unknown. 19:01 Method Of Arrival: Ambulatory 19:01 Acuity: YESSICA 4 hb Historical: - Allergies: 19:03 No Known Drug Allergies; hb - PSHx: 19:03 Ligation of fallopian tube; hb - Immunization history:: Adult Immunizations up to date. - Social history:: Smoking status: Patient denies any tobacco usage or history of. Screenin:58 [facility] ED Fall Risk Assessment (Adult) History of falling in the last 3 months, pf1 including since admission No falls in past 3 months (0 pts) Confusion or Disorientation No (0 pts) Intoxicated or Sedated No (0 pts) Impaired Gait No (0 pts) Mobility Assist Device Used No (0 pt) Altered Elimination No (0 pt) Score/Fall Risk Level 0 - 2 = Low Risk Oriented to surroundings, Maintained a safe environment, Educated pt \T\ family on fall prevention, incl call for assistance when getting out of bed, Assessed \T\ reinforced patient's understanding of fall precautions, Provided non-skid footwear, Hourly rounding (assess needs \T\ fall precautionary measures) done, Used ambulatory aids as needed (educated on \T\ assisted with), Used gait belt as appropriate. Abuse screen: Denies threats or abuse. Nutritional screening: No deficits noted. Tuberculosis screening: No symptoms or risk factors identified. Assessment: 19:56 General: Appears in no apparent distress. comfortable, obese, well groomed, well pf1 developed, Behavior is calm, cooperative, appropriate for age, quiet. Pain: Complains of pain in body aches, sore throat and ear pain Pain currently is 6 out of 10 on a pain scale. Neuro: Level of Consciousness is awake, alert, obeys commands, Oriented to person, place, time, situation, Reports headache. Cardiovascular: No deficits noted. Capillary refill < 3 seconds Patient's skin is warm and dry. Respiratory: Reports cough that is Airway is patent Respiratory effort is even, unlabored, Respiratory pattern is regular, symmetrical. GI: No deficits noted. No signs and/or symptoms were reported involving the gastrointestinal system. : No deficits noted. No signs and/or symptoms were reported regarding the genitourinary system. EENT: Reports sore throat and ear pain. Derm: No deficits noted. No signs and/or symptoms reported regarding the dermatologic system. Musculoskeletal: Reports pain in body aches. 20:30 Reassessment: Patient appears in no apparent distress at this time. Patient and/or pf1 family updated on plan of care and expected duration. Pain level reassessed. Patient is alert, oriented x 3, equal unlabored respirations, skin warm/dry/pink. Patient states symptoms have improved. Vital Signs: 19:01 BP 164 / 92; Pulse 94; Resp 18; Temp 97.8; Pulse Ox 97% ; Weight 142.88 kg; Height 5 hb ft. 3 in. ; 19:58 BP 129 / 81; Pulse 93; Resp 16; Pulse Ox 98% on R/A; Pain 6/10; pf1 19:01 Body Mass Index 55.80 (142.88 kg, 160.02 cm) hb 19:58 Pain Scale: Adult pf1 ED Course: 17:44 Patient arrived in ED. ts1 17:51 [facility] Borg[facility]C [facility] kb 17:51 Geoff Gutiérrez MD is Attending Physician. kb 19:03 Triage completed. hb 19:04 Arm band placed on. hb 19:24 Patient has correct armband on for positive identification. Bed in low position. Call pf1 light in reach. 19:42 Chest Pa And Lat (2 Views) XRAY In Process Unspecified. EDMS 19:58 No provider procedures requiring assistance completed. pf1 20:35 Provided Education on: prescription. pf1 20:35 Patient did not have IV access during this emergency room visit. pf1 Administered Medications: No medications were administered Medication: 20:35 VIS not applicable for this client. pf1 Outcome: 20:07 Discharge ordered by . kb 20:35 Patient left the ED. pf1 20:35 Discharged to home ambulatory, with family, pf1 20:35 Condition: improved pf1 20:35 Discharge instructions given to patient, Instructed on discharge instructions, follow up and referral plans. Demonstrated understanding of instructions, follow-up care, medications, Prescriptions given X 1, Signatures: Dispatcher [employer] [facility] Arianne Borges, OSD CLERK-C OSD CLERK-Lily Salinas RN RN Suzanne Mack RN RN pf1 Charlee Reid PAS PAS ts1
[2023-04-11 20:50] VITALS: BP 129/81; TEMP 97.8; O2SAT 98
== END ==
LOC: ER 17:41
DX: J02.0 Streptococcal pharyngitis (principal)
CPT/HCPCS: 71046; 87081; 87804; 99283